=== PATIENT | male | born 1965 | race Caucasian/White ===

== ENCOUNTER → 2016-10-20 | Outpatient (CLI) | payer BC, OTHER ==
[~2016-10-20] MED LIST: ALL180; LSNUNK; PRLSR20 PO
[2016-10-20 14:54] LABS: BASO % 0.3 %; BASO ABS # 0.02 K/uL (0-0.2); COMPLETE YES; HEMATOCRIT 45.5 % (42-52); IG% 0.1 %; LYMPH % 35.3 %; MEAN CELL VOLUME 84.9 fL (80-100); MEAN CORPUSCULAR HEMOGLOBIN 31.2 pg (25-34); MEAN CORPUSCULAR HGB CONC 36.7 g/dl (32-36); MEAN PLATELET VOLUME 9.5 fL (7.4-10.4); MONO % 7.5 %; NEUT % 52.8 %; PLATELET COUNT 268 K/uL (130-400); RED BLOOD COUNT 5.36 M/uL (4.7-6.1); WHITE BLOOD COUNT 6.79 K/uL (4.8-10.8)
[2016-10-20 15:03] LABS: BLOOD UREA NITROGEN 13 mg/dl (7-18); BUN/CREATININE RATIO 12.6 (10-20); CALCIUM 10.2 mg/dl (8.5-10.1); CARBON DIOXIDE 30 mmol/L (21-32); CHLORIDE 99 mmol/L (98-107); GLUCOSE 101 mg/dl (70-99); POTASSIUM 4.3 mmol/L (3.5-5.1); SODIUM 138 mmol/L (136-145)
[2016-10-20 19:00] LABS: LYME DISEASE AB IGG NEG (NEG); LYME DISEASE AB IGM NEG (NEG)
== END | disposition home or self-care (01) ==
LOC: C.LABSPEC 10:12
PROVIDERS: ATTEND Family Medicine
DX: R42 Dizziness and giddiness (principal); H53.9 Unspecified visual disturbance

== ENCOUNTER → 2016-11-28 | Outpatient (CLI) | payer BC ==
--- NOTE | 2016-12-01 09:06 | POLYSOMNOGRAPH REPORT ---
CLINICAL DATA: A 51-year-old male with BMI of 28.62, referred by Dr. Jones and myself for evaluation of unrefreshing sleep, fragmented sleep architecture, sleepiness and fatigue. On the evening of 11/28/2016, a home sleep apnea test was performed using a Poll Everywhere type 3 monitor. RECORDING RESULTS: Total recording time was 10 hours. The patient's estimated sleep time and monitoring time was 9.1 hours. RESPIRATORY DATA: No evidence of clinically significant sleep apnea was documented. The CLARA was 3.1. There were 15 apneic episodes and 13 hypopneic episodes recorded. The longest respiratory event was 24 seconds. OXIMETRY DATA: No hypoxemia was seen. Oxygen jv was 89%. Mean saturation was 93%. HEART RATE DATA: Heart rates ranged from 52-79 beats per minute. SNORING DATA: Snoring was recorded throughout the night. IMPRESSION: No evidence of clinically significant sleep apnea/hypopnea or nocturnal hypoxemia was seen on this sleep study. RECOMMENDATIONS: If PLMD or limb movements during sleep are suspected as a cause for sleep disruption, then an in-lab sleep study will be required to document this. Clinical correlation is needed. VAMSID
== END | disposition home or self-care (01) ==
LOC: C.NEUR 11:22
PROVIDERS: ATTEND Internal Medicine Pulmonary Disease
DX: G47.19 Other hypersomnia (principal); R53.83 Other fatigue; G47.9 Sleep disorder, unspecified; R06.83 Snoring